=== PATIENT | male | born 1975 | race Two or more races ===

== ENCOUNTER 2018-08-07 11:56 | Emergency (ER) | payer BC, OTHER ==
[~2018-08-07] VITALS: Ht 172.7 cm; Wt 90.7 kg
--- NOTE | 2018-08-07 11:56 | NUR ---
ED Nurse Note: [employer] at the bed side.
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
[2018-08-07] MEDS ORDERED: Tetanus/Diptheria/Pertussis Vaccine 0.5ml Syr IM ONE (12:00)
--- NOTE | 2018-08-07 12:38 | Diagnostic Imaging Report ---
Indication: Headache Technique: Contiguous 5 mm thick transaxial imaging of the head obtained in a Siemens Sensation [address] scanner. Soft tissue and bone windows generated. Automatic Exposure Control was utilized. Total Dose length Product (DLP): 1428.[address] Dose Index Volume (CTDIvol): 70.38 mGy Comparison: none Findings: The size and configuration of the cortical sulci, basal cisterns, and ventricles are within normal limits for age. There is no mass effect, midline shift, or edema identified. There is no evidence of acute hemorrhage or abnormal intra-axial or extra-axial fluid collections. The bones and soft tissues are unremarkable. Impression: No mass effect, edema or acute bleed. The CT scanner at [facility] is accredited by the [employer] and the scans are performed using dose optimization techniques as appropriate to a performed exam including Automatic Exposure control.
--- NOTE | 2018-08-07 12:43 | Diagnostic Imaging Report ---
Indication: Trauma facial pain. Technique: Continuous helical transaxial imaging of the maxillofacial structures obtained without intravenous contrast administration. Coronal 2-D reformats were also obtained. Study obtained in a Siemens sensation [address] Automatic Exposure Control was utilized. Total Dose length Product (DLP): Refer to CT head mGycm CT Dose Index Volume (CTDIvol): Refer to CT head mGy Comparison: None Findings: There is an acute fracture of the left frontal process of the maxilla. Soft tissue swelling noted. No other fractures are identified. Paranasal sinuses are clear. Orbits appear normal bilaterally. IMPRESSION: Acute left frontal process fracture The CT scanner at [facility] is accredited by the [employer] and the scans are performed using dose optimization techniques as appropriate to a performed exam including Automatic Exposure control.
[2018-08-07] MEDS ORDERED: Bacitracin Oint UD TOPIC ONE (13:31)
[2018-08-07] MEDS ORDERED: Morphine Sulfate 4mg/ml Inj (IV/IM USE ONLY) IM ONE (13:45)
[2018-08-07] MEDS ORDERED: NORCO 5-325 TA1 EACH ORAL (13:58)
[2018-08-07] MEDS ORDERED: BACITRACIN15 GM TOPIC (13:58)
[2018-08-07] MEDS ORDERED: CEPHALEXIN500 MG ORAL (13:58)
[2018-08-07] MEDS ORDERED: IBUPROFEN600 MG ORAL (13:58)
[2018-08-07 14:00] VITALS: BP 126/83
[2018-08-07 14:30] VITALS: BP 126/83
[2018-08-08] MEDS ORDERED: NORCO 5-325 TA1 EACH ORAL (12:53)
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
== END 2018-08-07 14:40 | disposition home or self-care (01) ==
LOC: EDBD 11:56 → EMR 12:23
DX: S01.01XA Laceration without foreign body of scalp, initial encounter (principal); S01.81XA Laceration without foreign body of other part of head, initial encounter; S02.40DA Maxillary fracture, left side, initial encounter for closed fracture; Y04.2XXA Assault by strike against or bumped into by another person, initial encounter; Y92.89 Other specified places as the place of occurrence of the external cause; Z23 Encounter for immunization
CPT/HCPCS: 12001; 12011; 70450; 70486; 90471; 90715; 99284; J2270

== ENCOUNTER 2018-08-08 11:20 | Emergency (ER) | payer BC, MEDICAID ==
[~2018-08-08] VITALS: Ht 172.7 cm; Wt 90.7 kg
[~2018-08-08 11:20] MED LIST: BACITRACIN15 GM TOPIC; CEPHALEXIN500 MG ORAL; IBUPROFEN600 MG ORAL; NORCO 5-325 TA1 EACH ORAL
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
[2018-08-08 12:26] VITALS: BP 120/81
[2018-08-08] MEDS ORDERED: NORCO 5-325 TA1 EACH ORAL (12:53)
[2018-08-08 13:01] VITALS: BP 118/79
--- NOTE | 2018-08-08 13:03 | NUR ---
ED Nurse Note: A/Ox4. Pt is cleared by Dr. Bear. DC instruction and prescription given, pt verbalized understanding. ID wrist band removed. Denies any pain at this time. All belongings taken by pt. Pt ambulated out of ER with steady gait.
--- NOTE | 2018-08-09 15:49 | Diagnostic Imaging Report ---
Indication: Trauma.and chest pain Comparison: None Findings: 4 views of the right chest wall was obtained for evaluation of the ribs. There is acute nondisplaced fracture of the right ninth rib. There is no pneumothorax or pleural effusion. IMPRESSION: Acute right ninth rib fracture
== END 2018-08-08 13:00 | disposition home or self-care (01) ==
LOC: EMR 12:00
DX: S22.31XA Fracture of one rib, right side, initial encounter for closed fracture (principal); S20.211A Contusion of right front wall of thorax, initial encounter; Y04.0XXA Assault by unarmed brawl or fight, initial encounter; Y92.89 Other specified places as the place of occurrence of the external cause
CPT/HCPCS: 99282

== ENCOUNTER 2018-08-15 11:24 | Emergency (ER) | payer BC, MEDICAID ==
[~2018-08-15] VITALS: Ht 172.7 cm; Wt 90.7 kg
[2018-08-15] MEDS ORDERED: NKM (11:32)
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
[2018-08-15 12:13] VITALS: BP 127/87
[2018-08-15] MEDS ORDERED: Bacitracin Oint UD TOPIC ONE ×2 (12:15)
[2018-08-15 13:08] VITALS: BP 127/87
== END 2018-08-15 12:20 | disposition home or self-care (01) ==
LOC: EMR 12:18
DX: S01.01XD Laceration without foreign body of scalp, subsequent encounter (principal)
CPT/HCPCS: 99282

== ENCOUNTER 2018-08-17 16:57 | Emergency (ER) | payer BC, MEDICAID ==
[~2018-08-17] VITALS: Ht 172.7 cm; Wt 90.7 kg
[~2018-08-17 16:57] MED LIST changes: +NKM
[2018-08-17 17:19] VITALS: BP 127/82
--- NOTE | 2018-08-17 17:22 | NUR ---
ED Nurse Note:pt. came for jayjay removal from top of his head
[2018-08-17] MEDS ORDERED: Bacitracin Oint UD TOPIC ONE ×2 (17:40→17:45)
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
[2018-08-17 17:46] VITALS: BP 127/82
--- NOTE | 2018-08-17 17:48 | NUR ---
ED Nurse Note:jayjay were removed by ER PATRICIO pt. was cleared for d/c by ER MD ,he received d/c instructions, verbalized understanding and left ER with steady gait and all personal belongings, ID bend removed
== END 2018-08-17 18:30 | disposition home or self-care (01) ==
LOC: EMR 17:20
DX: S01.01XD Laceration without foreign body of scalp, subsequent encounter (principal)
CPT/HCPCS: 99281